=== PATIENT | male | born 1990 | race American Indian/Alaskan Native ===

== ENCOUNTER 2017-05-24 20:51 | Emergency (ER) | payer SELFPAY ==
[2017-05-24] MEDS ORDERED: KEPPRA 1,000 MG/NS 0.75% 100ML 1,000 MG/100 ML BAG IV ONE (21:15)
--- NOTE | 2017-05-24 21:18 | Emergency Department Report ---
ED Seizure HPI - General Stated Complaint: SEIZURES Time Seen by Provider: 05/24/17 21:15 Source: patient, old records reviewed (previous ED visits for seizures secondary to med noncompliance) Mode of arrival: Stretcher Limitations: No Limitations - History of Present Illness Initial Comments: 26-year-old male with a past medical history of seizure disorder presents for hospital status post seizure. Patient states they typically occur in his sleep. He was sleeping at the time of this seizure and his sister noticed and called EMS. Patient was initially postictal route by currently A&O 3. Patient has his lower left lip and denies tongue laceration or urinary incontinence. No pain reported this time. The seizure was yesterday. Patient has been noncompliant with Keppra 2 months due to lack of insurance and lack of PMD. - Related Data Previous Rx's Medication Instructions Recorded Last Taken Type levETIRAcetam [Keppra TAB] 1,000 mg PO BID #60 tablet 05/24/17 Unknown Rx Allergies Allergy/AdvReac Type Severity Reaction Status Date / Time No Known Allergies Allergy Verified 09/29/15 13:45 ED Review of Systems ROS: Stated complaint: SEIZURES Other details as noted in HPI Comment: All other systems reviewed and negative Other: Constitutional: No fevers chills Eyes: No eye pain visual changes ENT: No ear pain or throat pain Neck: Denies pain Respiratory: Denies cough wheezing shortness of breath Cardiovascular: Denies chest pain, palpitations, syncope GI: Denies abdominal pain, nausea, vomiting, diarrhea : Denies dysuria Musculoskeletal: Denies back pain Skin: Denies rash, lesions, erythema Neurologic: Denies headache, numbness, weakness Psychiatric: Denies suicidal ideation, hallucinations ED Past Medical Hx - Past Medical History Hx Seizures: Yes - Social History Smoking Status: Never Smoker Substance Use Type: None - Medications Home Medications: Home Medications Medication Instructions Recorded Confirmed Last Taken Type levETIRAcetam [Keppra TAB] 1,000 mg PO BID #60 tablet 05/24/17 Unknown Rx ED Physical Exam - Other Other exam information: General: No limitations, patient is alert in no acute distress Head exam: Atraumatic, normocephalic Eyes exam: Normal appearance, pupils equal reactive to light, extraocular movements intact ENT: Moist mucous membrane, normal oropharynx. Small swelling to left inner lower lip without skin break Neck exam: Normal inspection, full range of motion, no meningismus nontender Respiratory exam: Clear to auscultation bilateral, no wheezes, rales, crackles Cardiovascular: Normal rate and rhythm, normal heart sounds Abdomen: Soft, nondistended, and nontender, with normal bowel sounds, no rebound, or guarding Extremity: Full range of motion normal inspection no deformity Back: Normal Inspection, full range of motion, no tenderness Neurologic: Alert, oriented x3, cranial nerves intact, no motor or sensory deficit Psychiatric: normal affect, normal mood Skin: Warm, dry, intact ED Course Vital Signs 05/24/17 05/24/17 05/24/17 20:59 21:01 21:07 Temperature 98.9 F Pulse Rate 91 H 89 86 Respiratory 20 16 18 Rate Blood Pressure 110/72 Blood Pressure 110/72 [Right] O2 Sat by Pulse 97 98 98 Oximetry 05/24/17 05/24/17 05/24/17 21:09 22:03 22:12 Temperature 98.9 F 98.9 F Pulse Rate 86 86 Respiratory 18 18 Rate Blood Pressure 114/76 Blood Pressure 110/72 [Right] O2 Sat by Pulse 98 100 98 Oximetry - Reevaluation(s) Reevaluation #1: 05/24/17 21:18 Seizure precautions and Keppra were ordered Reevaluation #2: 05/24/17 23:01 No further seizure activity. Patient is asymptomatic. ED Medical Decision Making - EKG Data -: EKG Interpreted by Me (nsr ate 93, no stemi, not inv) - EKG Data When compared to previous EKG there are: previous EKG unavailable - Differential Diagnosis seizure, medication noncompliance Critical Care Time: No Critical care attestation.: If time is entered above; I have spent that time in minutes in the direct care of this critically ill patient, excluding procedure time. ED Disposition Clinical Impression: Seizure, Noncompliance with medication regimen Disposition: TO HOME OR SELFCARE Is pt being admited?: No Does the pt Need Aspirin: No Condition: Stable Instructions: Recurrent Seizures Adult (ED) Additional Instructions: Take the medication as prescribed. Use the discount pharmacy card provided to make your medication more affordable. Follow-up at the clinic and neurologist provided. Return if symptoms worsen. Prescriptions: levETIRAcetam [Keppra TAB] 1,000 mg PO BID #60 tablet Referrals: [facility] [Provider Group] - 3-5 Days PENNY COVINGTON MD [Staff Physician] - 3-5 Days Time of Disposition: 23:06
[2017-05-25 00:49] VITALS: BP 105/58
== END 2017-05-24 23:30 | disposition home or self-care (01) ==
LOC: ED 20:51
DX: R56.9 Unspecified convulsions (principal); Z91.14 Patient's other noncompliance with medication regimen
CPT/HCPCS: 93005; 93010; 96374; 99284; J1953

== ENCOUNTER 2022-05-20 19:22 | Inpatient (IN) | payer SELFPAY ==
[2022-05-21] MEDS ORDERED: HYDROcodone/ACETAMINOPHEN 5-325 MG TAB PO ONE (01:37)
[2022-05-21] MEDS ORDERED: SODIUM CHLORIDE 0.9% IRR 500 ML BOTTLE IR ONE (01:39)
[2022-05-21] MEDS ORDERED: LIDOCAINE (1%) 10 MG/1 ML VIAL 20 ML MDV INFILTRATI ONE (01:39)
--- NOTE | 2022-05-21 01:44 | Emergency Department Report ---
HPI - General Chief Complaint: Skin/Abscess/Foreign Body Time Seen by Provider: 05/21/22 01:36 - HPI HPI: Room 37 The patient is a 31-year-old male presenting with a chief complaint of "lump on my back." Patient states for the past 1.5 weeks he noticed the swelling on his back that is tender to palpation. Patient states 2 days ago he noticed a gree michael drainage. Patient denies any history of fever. Patient denies any preceding trauma. Patient states he is not driving and was brought to the emergency department by his mother ED Past Medical Hx - Past Medical History Previous Medical History?: Yes Hx Seizures: Yes - Surgical History Past Surgical History?: Yes - Family History Family history: no significant - Social History Smoking Status: Never Smoker Substance Use Type: None (Denies illicit drug use), Alcohol (Occasional) - Medications Home Medications: Home Medications Medication Instructions Recorded Confirmed Last Taken Type levETIRAcetam [Keppra TAB] 1,000 mg PO BID #60 tablet 05/24/17 Unknown Rx ED Review of Systems ROS: Stated complaint: LUMP ON BACK Other details as noted in HPI Constitutional: denies: fever Eyes: denies: eye pain ENT: denies: throat pain Respiratory: no symptoms reported Cardiovascular: denies: chest pain Endocrine: no symptoms reported Gastrointestinal: denies: abdominal pain Genitourinary: denies: dysuria Musculoskeletal: back pain Skin: lesions Neurological: denies: headache Physical Exam - Physical Exam Vital Signs: Vital Signs 05/20/22 19:57 Temperature 99.6 F Pulse Rate 112 H Respiratory 18 Rate Blood Pressure 135/84 O2 Sat by Pulse 99 Oximetry Physical Exam: GENERAL: The patient is well-developed well-nourished male lying on stretcher not appearing to be in acute distress. [] HEENT: Normocephalic. Atraumatic. Extraocular motions are intact. Patient has moist mucous membranes. NECK: Supple. Trachea midline CHEST/LUNGS: There is no respiratory distress noted. SKIN: There is an approximately baseball sized abscess to the mid upper back with overlying erythema and skin changes. The patient has a birthmark present in the region as well that is unchanged since . NEURO: The patient is awake, alert, and oriented. The patient is cooperative. The patient has no focal neurologic deficits. The patient has normal speech. GCS 15 MUSCULOSKELETAL: There is no evidence of acute injury. ED Course Vital Signs 05/20/22 19:57 Temperature 99.6 F Pulse Rate 112 H Respiratory 18 Rate Blood Pressure 135/84 O2 Sat by Pulse 99 Oximetry - I & D Upper Back Type of Procedure: Simple Site: Upper back Blade Size: 11 I & D Procedure: betadine prep, sterile dressing applied, gauze wick placed Progress: Approximately 20 mL purulent and sanguinous fluid expressed from abscess after incision. Wound was irrigated with normal saline 500 mL ED Medical Decision Making - Lab Data Result diagrams: 05/21/22 03:31 05/21/22 03:31 Laboratory Tests 05/21/22 05/21/22 03:31 03:31 WBC 20.0 H RBC 4.77 Hgb 12.9 Hct 39.7 MCV 83 L MCH 27 L MCHC 32 RDW 12.0 L Plt Count 330 Lymph % (Auto) 7.0 L [place] % (Auto) 12.3 H Eos % (Auto) 0.0 Baso % (Auto) 0.4 Lymph # (Auto) 1.4 [place] # (Auto) 2.4 H Eos # (Auto) 0.0 Baso # (Auto) 0.1 Seg Neutrophils % 80.3 H Seg Neutrophils # 16.0 H Sodium 136 L Potassium 4.1 Chloride 96.0 L Carbon Dioxide 25 Anion Gap 19 BUN 6 L Creatinine 0.7 L Estimated GFR > 60 BUN/Creatinine Ratio 9 Glucose 380 H Calcium 8.9 - Differential Diagnosis Abscess Critical care attestation.: If time is entered above; I have spent that time in minutes in the direct care of this critically ill patient, excluding procedure time. ED Disposition Clinical Impression: Abscess of back, Leukocytosis, Hyperglycemia, Cellulitis of back Disposition: ADMITTED INPATIENT Is pt being admited?: Yes Does the pt Need Aspirin: No Condition: Fair Referrals: DAVID RAMON MD [Primary Care Provider] - 3-5 Days Time of Disposition: 04:45 (Care transferred to hospitalist (discussed with Dr. Moore))
[2022-05-21] MEDS ORDERED: LIDOCAINE-MPF (1%) 10 MG/1 ML VIAL 5 ML INFILTRATI ONE (02:02)
[2022-05-21] MEDS ORDERED: SODIUM CHLORIDE 0.9% 1000 ML 1,000 ML IV ONE (03:10)
[2022-05-21 03:43] LABS: Basophils # (Auto) 0.1 K/mm3 (0.0-0.1); Basophils % (Auto) 0.4 % (0.0-1.8); Hematocrit 39.7 % (35.5-45.6); Hemoglobin 12.9 gm/dl (11.8-15.2); Lymphocytes # (Auto) 1.4 K/mm3 (1.2-5.4); Mean Corpuscular HGB Conc 32 % (32-34); Mean Corpuscular Volume 83 fl (84-94); Monocytes # (Auto) 2.4 K/mm3 (0.0-0.8); Monocytes % (Auto) 12.3 % (0.0-7.3); Platelet Count 330 K/mm3 (140-440); Red Blood Count 4.77 M/mm3 (3.65-5.03)
[2022-05-21 03:56] LABS: BUN/Creatinine Ratio 9; Blood Urea Nitrogen 6 mg/dL (9-20); Calcium 8.9 mg/dL (8.4-10.2); Hemolysis Index 6
[2022-05-21] MEDS ORDERED: VANCOMYCIN/NS 1 GM/250 ML 1 GM/250 ML BAG IV ONE (04:04)
[2022-05-21] MEDS ORDERED: CEFEPIME/NS 2 GM/100 ML 2 GM/100 ML BAG IV ONE (04:04)
[2022-05-21] MEDS ORDERED: MORPHINE 2 MG/1 ML INJ IV PRN (05:33)
[2022-05-21] MEDS ORDERED: ONDANSETRON 4 MG/2 ML INJ IV PRN ×2 (05:33→09:00)
[2022-05-21] MEDS ORDERED: ACETAMINOPHEN 325 MG TAB PO PRN ×2 (05:33→09:00)
[2022-05-21] MEDS ORDERED: VANCOMYCIN PHARMACY TO DOSE IV SCH (08:00)
[2022-05-21] MEDS ORDERED: SODIUM CHLORIDE 0.9% 1000 ML 1,000 ML IV SCH (08:30)
[2022-05-21] MEDS ORDERED: oxyCODONE /ACETAMINOPHEN 5-325MG TAB PO PRN (08:30)
[2022-05-21] MEDS ORDERED: DEXTROSE 50% IN WATER (25GM) 50 ML SYRINGE IV PRN (09:00)
[2022-05-21] MEDS: INSULIN LISPRO 100 UNIT/ML SUB-Q SCH ×4 (10:54→21:34)
--- NOTE | 2022-05-21 12:23 | History and Physical Report ---
History of Present Illness Date of examination: 05/21/22 Date of admission: 05/21/22 05:33 Chief complaint: lump on back of the neck History of present illness: Patient is a 31-year-old male with history of seizure who presented to the ED with back pain after he noticed the swelling at the top of his back a week ago. The swelling increased and was painful. He did notice a white milky discharge expressed from it. He denies fevers, chills and night sweats. He has noticed no other lesions on his body. He has no history of diabetes and denies blurred vision, polyuria, polydipsia, polyphagia and weight loss. I&D was performed at the bedside and 20 mls of purulent drainage was sent to lab for culture. Labs are notable for WBC 30, blood glucose 380. He received a dose of vancomycin and cefepime in the ED. He was started on IV fluids. He was admitted for sepsis secondary to cellulitis/abscess and hyperglycemia. Past History Past Medical History: seizures Past Surgical History: No surgical history Social history: no significant social history Family history: no significant family history Medications and Allergies Allergies Allergy/AdvReac Type Severity Reaction Status Date / Time No Known Allergies Allergy Verified 09/29/15 13:45 Home Medications Medication Instructions Recorded Confirmed Last Taken Type levETIRAcetam [Keppra TAB] 1,000 mg PO BID #60 tablet 05/24/17 Unknown Rx Active Meds: Active Medications Acetaminophen (Acetaminophen 325 Mg Tab) 650 mg PO Q4H PRN PRN Reason: Pain MILD(1-3)/Fever >100.5/PARRA Dextrose (Dextrose 50% In Water (25gm) 50 Ml Syringe) 50 ml IV Q30MIN PRN; Protocol PRN Reason: Hypoglycemia Sodium Chloride (Nacl 0.9% 1000 Ml) 1,000 mls @ 75 mls/hr IV DIRECT BELKYS Vancomycin HCl 1,250 mg/ (Sodium Chloride) 275 mls @ 166.667 mls/hr IV Q12H BELKYS Insulin Human Lispro (Insulin Lispro 100 Unit/Ml) 0 unit SUB-Q ACHS BELKYS; Protocol Last Admin: 05/21/22 10:54 Dose: 4 unit Morphine Sulfate (Morphine 2 Mg/1 Ml Inj) 2 mg IV Q4H PRN PRN Reason: Pain, Moderate (4-6) Ondansetron HCl (Ondansetron 4 Mg/2 Ml Inj) 4 mg IV Q8H PRN PRN Reason: Nausea And Vomiting Oxycodone/Acetaminophen (Oxycodone /Acetaminophen 5-325mg Tab) 1 tab PO Q6H PRN PRN Reason: Pain, Moderate (4-6) Sodium Chloride (Sodium Chloride 0.9% 10 Ml Flush Syringe) 10 ml IV BID BELKYS Sodium Chloride (Sodium Chloride 0.9% 10 Ml Flush Syringe) 10 ml IV PRN PRN PRN Reason: LINE FLUSH Review of Systems Constitutional: no weight loss, no weight gain, no fever, no chills, no night sweats, no anorexia, no fatigue, no weakness, no lethargy, no poor appetite Ears, nose, mouth and throat: deferred Cardiovascular: no chest pain, no palpitations, no rapid/irregular heart beat, no dyspnea on exertion, no high blood pressure Respiratory: no cough, no shortness of breath, no congestion, no wheezing, no respiratory infections Gastrointestinal: no abdominal pain, no nausea, no vomiting, no diarrhea, no loss of appetite, no early satiety Genitourinary Male: no dysuria Musculoskeletal: no neck stiffness, no neck pain, no low back pain, no morning stiffness, no muscle cramps, no limitation of motion Integumentary: wounds, no blisters Neurological: no weakness, no numbness, no tingling, no seizures, no syncope, no headaches, no double vision, no burning pain Exam - Physical Exam Narrative exam: GENERAL: Well-developed well-nourished. In no acute distress. HEENT: Normocephalic. Atraumatic. NECK: Supple. CHEST/LUNGS: CTAB on room air BACK: Redness and I&D wound with redness and no induration noted. HEART/CARDIOVASCULAR: Tachycardic. No murmur, rubs or gallops appreciated. ABDOMEN: +BS. NT/ND. SKIN: No rashes noted. NEURO: No focal motor deficit. Follows all commands. MUSCULOSKELETAL: No joint effusion EXTREMITIES: No cyanosis, clubbing or edema. PSYCH: Cooperative. - Constitutional Vitals: Temp Pulse Resp BP Pulse Ox 99.6 F 115 H 17 136/85 97 05/20/22 19:57 05/21/22 05:38 05/21/22 05:38 05/21/22 01:53 05/21/22 05:38 Results - Labs CBC & Chem 7: 05/21/22 03:31 05/21/22 03:31 Labs: Laboratory Last Values WBC 20.0 K/mm3 (4.5-11.0) H 05/21/22 03:31 RBC 4.77 M/mm3 (3.65-5.03) 05/21/22 03:31 Hgb 12.9 gm/dl (11.8-15.2) 05/21/22 03:31 Hct 39.7 % (35.5-45.6) 05/21/22 03:31 MCV 83 fl (84-94) L 05/21/22 03:31 MCH 27 pg (28-32) L 05/21/22 03:31 MCHC 32 % (32-34) 05/21/22 03:31 RDW 12.0 % (13.2-15.2) L 05/21/22 03:31 Plt Count 330 K/mm3 (140-440) 05/21/22 03:31 Lymph % (Auto) 7.0 % (13.4-35.0) L 05/21/22 03:31 [place] % (Auto) 12.3 % (0.0-7.3) H 05/21/22 03:31 Eos % (Auto) 0.0 % (0.0-4.3) 05/21/22 03:31 Baso % (Auto) 0.4 % (0.0-1.8) 05/21/22 03:31 Lymph # (Auto) 1.4 K/mm3 (1.2-5.4) 05/21/22 03:31 [place] # (Auto) 2.4 K/mm3 (0.0-0.8) H 05/21/22 03:31 Eos # (Auto) 0.0 K/mm3 (0.0-0.4) 05/21/22 03:31 Baso # (Auto) 0.1 K/mm3 (0.0-0.1) 05/21/22 03:31 Seg Neutrophils % 80.3 % (40.0-70.0) H 05/21/22 03:31 Seg Neutrophils # 16.0 K/mm3 (1.8-7.7) H 05/21/22 03:31 Sodium 136 mmol/L (137-145) L 05/21/22 03:31 Potassium 4.1 mmol/L (3.6-5.0) 05/21/22 03:31 Chloride 96.0 mmol/L (98-107) L 05/21/22 03:31 Carbon Dioxide 25 mmol/L (22-30) 05/21/22 03:31 Anion Gap 19 mmol/L 05/21/22 03:31 BUN 6 mg/dL (9-20) L 05/21/22 03:31 Creatinine 0.7 mg/dL (0.8-1.3) L 05/21/22 03:31 Estimated GFR > 60 ml/min 05/21/22 03:31 BUN/Creatinine Ratio 9 % 05/21/22 03:31 Glucose 380 mg/dL (75-100) H 05/21/22 03:31 Calcium 8.9 mg/dL (8.4-10.2) 05/21/22 03:31 Assessment and Plan Assessment and plan: #Sepsis #Cellulitis #Abscess of posterior back -Status post I&D at bedside in ED -continue vancomycin and cefepime -wound culture received, waiting speciation -CT of the c-spine and #Hyperglycemia -patient without hx of diabetes, glucose >300 -A1C ordered to rule out diabetes -SSI initiated #History of seizure -patient not taking seizure medications and never followed up with Neurology -last seizure over a year ago #Advanced care planning -Disease education conducted, care plan discussed, diagnoses discussed, prognosis discussed, and patient acknowledges understanding with care plan -Time: +30 min Advance Directives: No VTE prophylaxis?: Chemical Plan of care discussed with patient/family: Yes
--- NOTE | 2022-05-21 17:00 | Cat Scan Report ---
CT CHEST WITHOUT AND WITH IV CONTRAST INDICATION / CLINICAL INFORMATION: ABSCESS. TECHNIQUE: Axial CT images were obtained through the chest before and after 75 cc of Omnipaque [address] scans at this location are performed using CT dose reduction for ALARA by means of automated exposure control. COMPARISON: None available. FINDINGS: HEART: No significant abnormality. CORONARY ARTERY CALCIFICATION: None. THORACIC AORTA: No significant abnormality. MEDIASTINUM / CELESTINA: No significant abnormality. PLEURA: No pleural effusion. No pneumothorax. LUNGS: No acute air space or interstitial disease. ADDITIONAL FINDINGS: Soft tissue and gas collection is noted involving the right upper back. This sherrell ears to be centered at the level of C7 and appears just right of midline. This collection measures 4. 1 by 7.1 by at least 4.5 cm. UPPER ABDOMEN: No significant abnormality. SKELETAL SYSTEM: No significant abnormality. IMPRESSION: 1. Soft tissue abscess involving the right upper back as detailed above. No additional significant fi ndings. Signer Name: Lamont Soto DO Signed: 05/21/2022 4:56 PM Workstation Name: [id number]
[2022-05-21] MEDS ORDERED: VANCOMYCIN 1,250 MG in SODIUM CHLORIDE 0.9% 250ML 250 ML IV SCH (18:00)
--- NOTE | 2022-05-21 18:34 | Cat Scan Report ---
CT cervical spine wo/w con INDICATION: ABSCESS ON BACK. TECHNIQUE: All CT scans at this location are performed using CT dose reduction for ALARA by means of automated e xposure control. COMPARISON: Chest CT done same day. FINDINGS: There is a large soft tissue gas collection in the right upper back/right lower neck in the subcutane ous soft tissues around the level of C7 measuring 4.1 x 7.1 x 4.5 cm. There is no bone destruction to suggest underlying bone involvement. Remaining visualized soft tissues appear unremarkable. There are no significant degenerative changes in cervical spine. IMPRESSION: 1. Large abscess in the right lower neck/right upper back subcutaneous soft tissues. Signer Name: Krzysztof Nelson MD Signed: 05/21/2022 6:30 PM Workstation Name: [id number]
[2022-05-21 20:31] VITALS: BP 97/48
[2022-05-21] MEDS ORDERED: HEPARIN 5,000 UNIT/1 ML VIAL SUB-Q SCH (22:00)
== END 2022-05-21 23:02 | disposition home or self-care (01) | DRG 872 ==
LOC: ED 19:22 → 3A 05-21 05:33
PROVIDERS: ADMIT Internal Medicine Geriatric Medicine; ATTEND Student in an Organized Health Care Education/Training Program
DX: A41.89 Other specified sepsis (principal); L02.212 Cutaneous abscess of back [any part, except buttock and flank]; D72.829 Elevated white blood cell count, unspecified
CPT/HCPCS: 36415; 71270; 72127; 80048; 82962; 83036; 85025; 87116; G0378; J3490; Q9967; J0692; J1644; J1815; J3370; J7030; J7050